=== PATIENT | female | born 1970 | race Caucasian/White ===

== ENCOUNTER 2016-12-02 11:24 | Observation (INO) ==
[2016-12-02] MEDS ORDERED: Ondansetron 4 MG/2 ML VIAL IVP PRN (14:00)
[2016-12-02] MEDS ORDERED: Naloxone 0.4 MG/ML INJ IVP PRN (14:00)
[2016-12-02] MEDS ORDERED: Acetaminophen 325 MG TABLET PO PRN (14:05)
[2016-12-02] MEDS ORDERED: SUMAtriptan succinate 50 MG TABLET PO PRN (14:06)
--- NOTE | 2016-12-02 14:18 | Event Note ---
Date of Encounter: 12/02/16 Time of Encounter: 14:00 Patient was seen and evaluated by Dr. De as an outpatient for abdominal pain. She was seen and evaluated in the emergency department on 11/28/2016. She continues to have complaints of diffuse abdominal pain with distention, bloating, nausea and vomiting. She states that she has no appetite. Her ultrasound completed in the emergency department shows evidence of cholelithiasis. She has been admitted to the hospital for further workup and treatment for acute cholecystitis. A complete history and physical has been completed in [facility] per Dr. De. A copy has been placed at the nurse's station as well as in the medical record folder to be scanned into medical records. We will plan for laparoscopic cholecystectomy with cholangiogram with Dr. De on 12/03/2016. Urine test complete on 11/28/2016 was negative.
[2016-12-02] MEDS: 0.9 % Sodium Chloride 1,000 ML IVC SCH (14:45)
[2016-12-02] MEDS: *HR* HYDROmorphone (PF) 1 MG/ML SYRINGE IVP PRN ×2 (14:48→20:25)
[2016-12-02] MEDS: Gabapentin 300 MG CAPSULE PO SCH ×2 (14:50→19:53)
[2016-12-02] MEDS: Nicotine 14 MG PATCH.TD24 TD SCH (14:50)
[2016-12-02] MEDS: MetroNIDAZOLE 500 MG/100 ML 500 MG/100 ML BAG IVPB SCH ×2 (14:50→23:15)
[2016-12-02 15:00] LABS: Basophils # 0.1 K/mcL (0.0-0.2); Basophils % 0.7 %; Eosinophils % 0.5 %; Hematocrit 36.5 % (35.3-44.9); Hemoglobin 12.2 g/dL (11.5-15.4); Immature Granulocytes % 0.3 % (0-4); Lymphocytes # 1.2 K/mcL (0.6-4.6); Lymphocytes % 16.9 %; Mean Corpuscular HGB Conc 33.4 g/dL (31.6-35.5); Mean Corpuscular Hemoglobin 31.4 pg (28.0-33.3); Mean Corpuscular Volume 93.8 fL (83.0-100.0); Mean Platelet Volume 10.6 fL (9.4-12.4); Monocytes # 0.6 K/mcL (0.0-1.3); Neutrophils # 5.4 K/mcL (1.6-8.9); Platelet Count 267 K/mcL (140-400); Red Blood Count 3.89 M/mcL (3.82-4.97); Red Cell Distribution Width 12.6 % (11.5-14.5); Segmented Neutrophils % 73.6 %
[2016-12-02 15:15] LABS: Alanine Aminotransferase 11 Units/L (0-55); Albumin 3.9 g/dL (3.5-5.0); Albumin/Globulin Ratio 1.1 (1.1-2.2); Alkaline Phosphatase 76 Units/L (38-126); Aspartate Amino Transferase 13 Units/L (5-34); BUN/Creatinine Ratio 13 (6-26); Bilirubin,Total 0.5 mg/dL (0.2-1.2); Blood Urea Nitrogen 9 mg/dL (7-20); Calcium 9.7 mg/dL (8.6-10.8); Carbon Dioxide 27 mEq/L (19-29); Chloride 106 mEq/L (98-109); Globulin 3.5 g/dL (2.4-3.5); Glucose 92 mg/dL (70-99); Osmolality,Calculated 290 (280-300); Sodium 141 mEq/L (136-145); Total Protein 7.4 g/dL (6.0-8.3); eGFR For African Americans > 60 (> 60); eGFR For Non-African Americans > 60 (> 60)
[2016-12-02] MEDS: *HR* OxyCODONE/APAP 5/325 TABLET PO PRN ×2 (17:22→23:14)
--- NOTE | 2016-12-02 19:44 | Anesthesia Evaluation PreOp ---
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: Other (migraine HARRISON's, H/O Miner's palsy) Other Medical History: Renal (kidney stones), Other (fibromyalgia) Anesthesia History: No Prior Anesthetic Complications, Past Anesthesia Test: Negative (11/28/2016) Alcohol Use: occasionally Drug use: none Medications and Allergies Ergocalciferol (VITAMIN D2) [Vitamin D] 400 unit PO BID 12/02/16 [History] Gabapentin [Neurontin] 600 mg PO TID 12/02/16 [History] SUMAtriptan succinate [Imitrex] 50 mg PO Q2H PRN 12/02/16 [History] Allergies Penicillins Allergy (Verified 11/28/16 12:34) Hives [place] Allergy (Verified 11/28/16 12:34) Hives - Meds/Allergy Pre-op Review Medications Reviewed: Yes Allergies Reviewed: Yes Beta Blockers on Current Med List: No Anesthesia Results - Labs 12/02/16 14:26 12/02/16 14:26 Laboratory Tests 11/28/16 15:03 Urine Test Negative Anesthesia Exam Vital Signs/O2 Sat, Most Current Temp Pulse Resp BP Pulse Ox 98.2 F 70 16 133/91 96 12/02/16 20:12 12/02/16 20:12 12/02/16 20:12 12/02/16 20:12 12/02/16 20:12 Height: 5'2''/1.57 m Weight: 156 lbs/71.2 kg - HEENT Pupil (Motor): EOMI Mallampati: II Teeth: Normal Denture Type: Upper: Partial Oral Opening: Greater than 3 - 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
[2016-12-02] MEDS: (Ergocalciferol (Vitamin D2) [Vitamin D] 400 UNIT) PO SCH (19:49)
[2016-12-03] MEDS: *HR* HYDROmorphone (PF) 1 MG/ML SYRINGE IVP PRN (04:22)
[2016-12-03 07:08] LABS: Alanine Aminotransferase 11 Units/L (0-55); Albumin 3.5 g/dL (3.5-5.0); Albumin/Globulin Ratio 1.1 (1.1-2.2); Alkaline Phosphatase 67 Units/L (38-126); Aspartate Amino Transferase 13 Units/L (5-34); BUN/Creatinine Ratio 10 (6-26); Bilirubin,Total 0.6 mg/dL (0.2-1.2); Blood Urea Nitrogen 8 mg/dL (7-20); Calcium 8.6 mg/dL (8.6-10.8); Carbon Dioxide 28 mEq/L (19-29); Chloride 103 mEq/L (98-109); Globulin 3.1 g/dL (2.4-3.5); Glucose 129 mg/dL (70-99); Osmolality,Calculated 284 (280-300); Potassium 3.5 mEq/L (3.5-4.5); Sodium 137 mEq/L (136-145); Total Protein 6.6 g/dL (6.0-8.3); eGFR For African Americans > 60 (> 60); eGFR For Non-African Americans > 60 (> 60)
[2016-12-03] MEDS: Gabapentin 300 MG CAPSULE PO SCH (07:29)
[2016-12-03] MEDS: MetroNIDAZOLE 500 MG/100 ML 500 MG/100 ML BAG IVPB SCH (07:29)
[2016-12-03] MEDS: 0.9 % Sodium Chloride 1,000 ML IVC SCH (07:29)
[2016-12-03] MEDS: Nicotine 14 MG PATCH.TD24 TD SCH (07:30)
[2016-12-03] MEDS: (Ergocalciferol (Vitamin D2) [Vitamin D] 400 UNIT) PO SCH (07:30)
[2016-12-03] MEDS: *HR* OxyCODONE/APAP 5/325 TABLET PO PRN (09:45)
[2016-12-03] MEDS ORDERED: *HR* Labetalol 20 MG/4 ML SYRINGE IVP PRN (12:04)
[2016-12-03] MEDS ORDERED: *HR* Promethazine 25 MG/ML VIAL IVP PRN (12:04)
[2016-12-03] MEDS ORDERED: *HR* HYDROmorphone (PF) 1 MG/ML SYRINGE IVP PRN (12:04)
[2016-12-03] MEDS ORDERED: Ondansetron 4 MG/2 ML VIAL ONE ×2 (12:05→13:29)
[2016-12-03] MEDS ORDERED: *HR* Succinylcholine 200 MG/10 ML VIAL IVP ONE (12:05)
[2016-12-03] MEDS ORDERED: *HR* FentaNYL (PF) 100 MCG/2 ML VIAL ONE (12:05)
[2016-12-03] MEDS ORDERED: Neostigmine Methylsulfate 3 MG/3 ML SYRINGE ONE (12:05)
[2016-12-03] MEDS ORDERED: *HR* Propofol 200 MG/20 ML VIAL IVP ONE (12:05)
[2016-12-03] MEDS ORDERED: *HR* Rocuronium Bromide 50 MG/5 ML VIAL ONE (12:05)
[2016-12-03] MEDS ORDERED: Lidocaine -MPF 2% 2 ML VIAL ONE (12:08)
[2016-12-03] MEDS ORDERED: Lidocaine -MPF 4% 5 ML AMPUL ONE (12:09)
[2016-12-03] MEDS ORDERED: Acetaminophen IV 1,000 MG/100 ML INFUS..BTL ONE (12:26)
[2016-12-03] MEDS ORDERED: Dexamethasone 4 MG/ML VIAL ONE (13:29)
--- NOTE | 2016-12-03 14:17 | Anesthesia Evaluation Post Op ---
Date of Encounter: 12/03/16 Time of Encounter: 14:14 - Vital Signs Vital Signs: vss - Lungs Lungs: Clear Ascult./Percussion - Airway Airway: Non-obstructed - Cardiovascular Baseline Rhythm - Mental Status Mental Status: Alert & Oriented, Answers Appropriately - Pain Pain Scale used: Mer (Faces) - Nausea Vomiting Nausea Vomiting: Not Present - Hydration Hydration: Tolerates oral liquids - Discharge PostOp Status: Transfer Patient to floor
--- NOTE | 2016-12-03 15:19 | Operative Note ---
Date of procedure: 12/03/16 Pre-op diagnosis: Chronic Cholecystitis Post-op diagnosis: same Procedure: Laparoscopic Cholecystectomy with cholangiogram Anesthesia: TATIANA Surgeon: Mat De Estimated blood loss (cc): 5 Specimen: GB Condition: stable Disposition: same day Procedure in Detail: After informed consent this patient was taken the operating room placed supine position. After adequate sedation anesthesia the abdomen was prepped and draped. A proper timeout was performed. Two towel clamps are placed at the umbilicus and a Veres needle was inserted into the abdomen. A 5 mm incision was made at the umbilicus. A 12 mm incision was made in the subxiphoid region. Two 5 mm incisions were made in the right upper quadrant that were 4 finger breadths and 6 finger breadths below the costal margin. The gallbladder was identified, retracted anteriorly and cephalad, and the infundibulum was skeletonized. The cystic duct was easily identified and was dissected free. A ductotomy was created in the cystic duct. A taut catheter was placed within the cystic duct and clipped. A cholangiogram was performed. Contrast filled the cystic duct, common hepatic duct, hepatic radicles, and the distal common bile duct. There was flow of contrast into the duodenum. Once this was confirmed the clippers removed, the taut catheter was removed as well, and the cystic duct was clipped distally. The cystic duct was then transected with scissors. The gallbladder was resected off the liver surface. There was excellent hemostasis. The gallbladder was then retrieved through the 12 mm cannula site. At this point the abdomen was suctioned dry and the pneumoperitoneum was then evacuated. All ports were removed. The 12 mm cannula site was closed with an 0 Vicryl suture in [id number] fashion. The skin was closed with 4-0 Vicryl suture. Dermabond was placed as well. All instrument counts and needle counts are correct in the operation. She tolerated the procedure well and was transferred to the PACU in stable condition.
[2016-12-03 15:38] VITALS: BP 130/80
--- NOTE | 2016-12-03 15:39 | Discharge Summary ---
Date of Encounter: 12/03/16 Time of Encounter: 15:34 - Discharge Diagnosis (1) Acute cholecystitis Priority: Primary Status: Acute - Discharge Medications Prescriptions: OxyCODONE/APAP 5/325 [Percocet 5/325 MG] 1 each PO Q4HR PRN #30 tab PRN Reason: Moderate Pain Docusate [Colace] 100 mg PO BID PRN #60 PRN Reason: Constipation Home Medications: Ergocalciferol (VITAMIN D2) [Vitamin D] 400 unit PO BID 12/02/16 [History] Gabapentin [Neurontin] 600 mg PO TID 12/02/16 [History] SUMAtriptan succinate [Imitrex] 50 mg PO Q2H PRN 12/02/16 [History] Docusate [Colace] 100 mg PO BID PRN #60 12/03/16 [Rx] OxyCODONE/APAP 5/325 [Percocet 5/325 MG] 1 each PO Q4HR PRN #30 tab 12/03/16 [Rx ] Allergies/Adverse Reactions: Allergies Penicillins Allergy (Verified 11/28/16 12:34) Hives [place] Allergy (Verified 11/28/16 12:34) Hives General Surgery Exam Initial Vital Signs Temp Pulse Resp BP Pulse Ox 97.9 F 73 16 142/91 100 12/02/16 12:16 12/02/16 12:16 12/02/16 12:16 12/02/16 12:16 12/02/16 12:16 Date of admission: 12/02/16 11:41 Primary care physician: PCP NONE Discharging clinician: Mat Aguila) - Patient Status Disposition: Home, Self-Care Condition: Good Functional capacity at discharge: independent ambulation Overall status at discharge: patient is progressing back to baseline - Discharge Instructions Instructions: Laparoscopic Cholecystectomy (DC) Follow Up With: NONE,PCP [Primary Care Provider] - Charity Luna PEDIATRIC PHYSICIAN ASSISTANT [Advanced Practice Nurse] - (12/18/2016 at 9:45 am) Additional Instructions: -No lifting, pulling, pushing, greater than 15 pounds for 2 weeks. -Okay to climb stairs. -May resume driving when you have been off narcotics for 24 hours and you are safe to react in the car. -You may shower beginning tomorrow. Wash the incisions daily with soap and water and pat dry. -No swimming, tough bath, or soaking for 2 weeks. -Return to the office for follow-up as directed on December 18, 2016 at 9:45 AM -Report any increase in discomfort or any new fevers greater than 101.5 degrees and signs of infection such as redness, swelling, or drainage from the incisions. - Diet and Activity Activity: increase activity as tolerated - Hospital Course Hospital course: Ms. Thomason is a 46 year old female who was seen and evaluated by Dr. De as an outpatient for abdominal pain on 12/02/2016 after being seen in the emergency department on 11/28/2016. She continued to have complaints of diffuse abdominal pain with distention, bloating, nausea and vomiting. She stated that she had no appetite. Her ultrasound completed in the emergency department showed evidence of cholelithiasis. She was admitted to the hospital for further workup and treatment for acute cholecystitis. Urine test complete on 11/28/2016 was negative. A complete history and physical was completed in [facility] per Dr. De. A copy was been placed at the nurse's station as well as in the medical record folder to be scanned into medical records. She was taken to the OR and completed a laparoscopic cholecystectomy with cholangiogram with Dr. De on 12/03/2016. She is tolerating liquids without nausea or vomiting, vital signs are stable, she is afebrile, and she is voiding and ambulating without difficulty. - Time Spent with Patient Total time spent providing and/or coordinating discharge services: Labs on day of discharge: Labs from last 24 hours 12/03/16 06:32 Sodium 137 Potassium 3.5 Chloride 103 Carbon Dioxide 28 BUN 8 Creatinine 0.79 Est GFR ( Amer) > 60 Est GFR (Non-Af Amer) > 60 BUN/Creatinine Ratio 10 Glucose 129 H Calculated Osmolality 284 Calcium 8.6 Total Bilirubin 0.6 AST 13 ALT 11 Alkaline Phosphatase 67 Serum Total Protein 6.6 Albumin 3.5 Globulin 3.1 Albumin/Globulin Ratio 1.1 - Impressions ITS Impressions Cholangiogram,Operative 12/03/16 00:00 IMPRESSION: Common duct is demonstrated as patent. D/ / Israel Rivera MD / Israel Rivera MD Interpreting Provider: Israel Rivera MD
[2016-12-04] MEDS ORDERED: Cholecalciferol (D-3) 1,000 UNIT TABLET PO SCH (09:00)
== END 2016-12-03 16:22 | disposition home or self-care (01) ==
LOC: 2ANU
PROVIDERS: ADMIT Surgery; ATTEND Surgery